=== PATIENT | male | born 1965 | race Caucasian/White ===

== ENCOUNTER → 2023-02-03 | Day surgery (SDC) | payer SELFPAY ==
[~2023-02-03] MED LIST: Lactated Ringers 1,000 ML IV SCH; Lidocaine 1% 2 ML ONE; Midazolam 1 MG/ML 2 ML SDV ONE; Ondansetron 4 MG/2 ML SDV IVPUSH PRN; Propofol 200 MG/20 ML SDV ONE; Sodium Chloride 0.9% 10 ML Syringe FLUSH PRN; Sodium Chloride 0.9% 10 ML Syringe FLUSH SCH
== END | disposition home or self-care (01) ==
LOC: JD.SDS 07:30
PROVIDERS: ATTEND Specialist
DX: C20 Malignant neoplasm of rectum (principal); K57.30 Diverticulosis of large intestine without perforation or abscess without bleeding; E66.9 Obesity, unspecified; Z80.0 Family history of malignant neoplasm of digestive organs; Z87.891 Personal history of nicotine dependence
CPT/HCPCS: 45380; J2250; J2704; J7120; 00811; J3490